=== PATIENT | male | born 1960 | race Caucasian/White ===

== ENCOUNTER 2017-09-01 08:43 | Day surgery (SDC) | payer BC ==
[2017-09-01] MEDS ORDERED: ACETAMINOPHEN 1,000 MG/100 ML BTL IV ONE (08:44)
[2017-09-01] MEDS ORDERED: LIDOCAINE 1% W/EPI 1:200,000 MPF 30ML SQ ONE (08:44)
[2017-09-01] MEDS ORDERED: BUPIVACAINE 0.75% W/EPI MPF 30ML VIAL IVP ONE (08:44)
[2017-09-01] MEDS ORDERED: MIDAZOLAM HCL 2MG/2ML VIAL IV ONE (08:44)
[2017-09-01] MEDS ORDERED: PROPOFOL 10 MG/ML VIAL IV ONE (08:44)
[2017-09-01] MEDS ORDERED: FENTANYL PF 100MCG/2ML VIAL IV ONE (08:44)
[2017-09-01] MEDS ORDERED: LIDOCAINE 2% MDV (20MG/ML) 20ML VIAL IV ONE (08:44)
[2017-09-01] MEDS ORDERED: DEXAMETHASONE PRESERVATIVE FREE 10MG/ML VIAL IV ONE (08:44)
--- NOTE | 2017-09-01 16:46 | Operative Note - [place] ---
DATE OF SURGERY: 09/01/17 PREOPERATIVE DIAGNOSIS: CERVICAL SPONDYLOSIS WITHOUT MYELOPATHY, ICD-10 CODE = M47.812. OPERATION: RADIOFREQUENCY RHIZOTOMY BILATERAL CERVICAL FACETS 3-4, 4-5, AND 5-6. SURGEON: KASSANDRA VASQUEZ D.O. ANESTHESIA: LOCAL SEDATION. ANESTHESIA PROVIDER: MARU FREEDMAN CRNA. INDICATION: This patient presents with primary neck pain. Examination shows diffuse tenderness in the cervical spine. Range of motion does cause pain to the neck with extension. Diagnostic studies including cervical imaging, shows diffuse spondylosis. A facet series resulted in 75 to 85% pain control. Previous rhizotomy with similar results. Due to the failure of all other therapies and the success of both facet and rhizotomy, he is here for repeat. PROCEDURE: Intravenous line, vital sign monitoring, IV sedation, prepped, draped, sterile technique. Cervical facets at 3-4, 4-5, and 5-6 were marked and identified bilaterally. Skin infiltrated. A 20-gauge rhizotomy cannula positioned. Stimulation trials conducted. Rhizotomy burn performed. Local with anti-inflammatory into the sites. Topical antibiotics. Sterile dressing applied. We will monitor and evaluate. cc: Primary Physician JOB NUMBER: [id number] MTDD
== END 2017-09-01 10:45 | disposition home or self-care (01) ==
LOC: SUR 08:43
PROVIDERS: ATTEND Pain Medicine Interventional Pain Medicine
DX: M47.812 Spondylosis without myelopathy or radiculopathy, cervical region (principal)
CPT/HCPCS: 64633; 64634 ×2; 01936; J1100; J3490